=== PATIENT | male | born 1980 | race Caucasian/White ===

== ENCOUNTER 2025-06-23 15:14 | Emergency (ER) | payer BC, SELFPAY ==
[2025-06-23 15:32] VITALS: BP 125/76
[2025-06-23 17:08] VITALS: BP 134/66
--- NOTE | 2025-06-23 17:12 | ED.GENMED ---
History of Present Illness
General
Chief Complaint: DVT/Possible Blood Clot
Time Seen by Provider: 06/23/25 17:08
Nursing documentation reviewed up to this point in time: agreed with
History of Present Illness
History of Present Illness:
44-year-old male presents to the ER for evaluation of pain in his right lateral thigh which has been present over the last 2 weeks. No injury or trauma. No fevers or chills. Patient has been eating and drinking normally. He has not tried any
pain relievers for his symptoms. He is on chronic prednisone for Crohn's disease. He denies any rash. No extremity edema. No prior personal history of venous thromboembolism. He denies pain in his hip. He has been able to ambulate without
assistance. He denies pain in his knee or lower leg.
Past History
Past History
ED Past Medical History: Other (Crohn's, colitis)
ED Past Surgical History: None
Social History
Tobacco: Non-smoker
Alcohol: None
Drug: None
Personal:
Living: with family
Employment: Employed
Review of Systems
Review of Systems
Allergies reviewed?: Yes
Phy Exam
Physical Exam
Physical Exam:
Vital signs reviewed, patient is awake, alert, appears no acute distress, GCS is 15, mucous membranes moist, sclera anicteric, pelvis is stable to rock, no pain on palpation over bilateral hips, bilateral knees, lower legs, bilateral ankles or feet,
2+ DP pulses present symmetric bilateral feet, brisk cap refill present to the toes of the right foot, no calf pain on palpation bilaterally, no asymmetry on diameter of calves bilaterally, pain is localized over the distal insertion of the tensor
fascia starla on the superior lateral aspect of the right knee, there is no joint effusion, no excessive warmth, no crepitus, no overlying skin change
Course
Orders/Labs/Results
Orders:
Orders
06/23/25 15:35
Venous Doppler Lwr Ext Rt [US Periph Venous LOWER Ext RT] Urgent
Comment:
Reason For Exam: pain
06/23/25 17:12
Acetaminophen [Tylenol] 1,000 mg PO NOW STA
Femur, Right 2 View [CR Femur - Right Min 2 Vw] Urgent
Comment:
Reason For Exam: atraumatic pain
Knee, Right 4 or More Views [CR Knee- Right 4 Or More View*] Urgent
Comment:
Reason For Exam: atraumatic pain
Vital Signs
Initial and Last Documented VS:
Initial Vital Signs
Temp Pulse Resp BP Pulse Ox
98.4 F 87 18 125/76 99
06/23/25 15:32 06/23/25 15:32 06/23/25 15:32 06/23/25 15:32 06/23/25 15:32
Last Documented Vital Signs
Temp Pulse Resp BP Pulse Ox
98.4 F 87 18 134/66 97
06/23/25 15:32 06/23/25 15:32 06/23/25 15:32 06/23/25 17:08 06/23/25 18:00
MDM/Problems Addressed
Differential Diagnosis Includes:
Differential diagnosis to consider but not limited to DVT, arthritis, malignancy, sprain, strain, fracture along with other etiologies considered
Chronic conditions affecting care:
chrons on steroids
*Radiology
Radiology exam reviewed: preliminary read by ED provider (I independently viewed and interpreted x-ray of the right knee showing no acute process, no fracture, no malalignment. I independently viewed and interpreted x-ray of the right femur showing
normal alignment, no fracture, no acute process.) and radiology read reviewed (No DVT seen on ultrasound)
*Pulse Oximetry
SaO2: 99
Oxygen Mode of Delivery: Room air
Patient hypoxic: no
*Critical Care Note
Total Time (30-74mins, 75-104mins- exclusive of procedures): Not Applicable
Update Note
Update Note:
Will trial Tylenol for discomfort while awaiting x-ray of femur and knee. I discussed with patient and present at bedside very reassuring ultrasound without evidence of DVT
1830: I reviewed negative x-rays of femur and knee with patient. I discussed with him likely etiology symptoms related to tendinitis, no evidence for acute worrisome process. I advised him to use topical pain relieving creams in addition to
Tylenol I provided him with orthopedic referral information. He feels comfortable with this plan and has no additional questions at the current time.
ED Attending Note
-
Portions of this chart may have been created with voice recognition software.� Occasional wrong word or��sound alike� substitutions may have occurred due to the inherent limitations of voice recognition software.
Discharge Plan
Departure
Patient Disposition: Home (Routine Discharge)
Date of Disposition: 06/23/25
Time of Disposition: 18:32
Patient with high blood pressure during this ER visit?: No
Discharge Problem:
Acute leg pain, Tendonitis
Instructions: Tendinopathy (DC)
Prescriptions:
No Action
mesalamine 1.2 GM tablet,delayed release (DR/EC)
4 tab PO HS
ondansetron 4 MG tablet,disintegrating
4 mg PO TIDPRN PRN (Reason: nausea/vomiting) Qty: 10 0RF
loperamide 2 MG capsule
2 mg PO Q6HPRN PRN (Reason: loose stool) Qty: 10 0RF
famotidine 20 MG tablet
20 mg PO BID Qty: 28 0RF
Rx Instructions:
Take 20 mg twice a day for 14 days
ascorbic acid (vitamin C) [Vitamin C] 500 MG tablet
1,000 mg PO BID Qty: 56 0RF
Rx Instructions:
Take 1,000 mg twice a day for 14 days
aspirin 81 MG tablet,chewable
81 mg PO DAILY Qty: 14 0RF
Rx Instructions:
Take 81 mg daily for 14 days
zinc sulfate 220 MG capsule
220 mg PO DAILY Qty: 14 0RF
Rx Instructions:
Take 220 mg daily for 14 days
cholecalciferol (vitamin D3) 1,000 UNITS tablet
2,000 units PO DAILY Qty: 28 0RF
Rx Instructions:
Take 2,000 units daily for 14 days
melatonin 5 MG tablet
5 mg PO HS Qty: 14 0RF
Rx Instructions:
Take 5 mg daily at bedtime for 14 days
prednisone 20 MG tablet
40 mg PO DAILY Qty: 10 0RF
amoxicillin-pot clavulanate 1 TABLET tablet
1 tab PO Q12 Qty: 20 0RF
Referrals:
Joana Sepulveda MD [Family Provider, Physical Medicine and Rehab]
Theron Garcia MD [Active, Orthopedics] - Follow up in 5-7 days
Discharge Problem: Tendonitis
Activity Restrictions/Additional Instructions:
Use Tylenol as available [id number] as needed for pain. You may also try [id number] pain relieving creams such as Voltaren or Salonpas-apply as per package instructions to area of discomfort. Please follow-up with your primary care
physician this week or orthopedics if you are able to be seen. Return to the ER for any concerns
Interventions
Interventions:
*Risk Screen - Suicide Last Done: 06/23/25 15:32
*General Assessment Last Done: 06/23/25 15:32
*Neglect/Abuse Screening Last Done: 06/23/25 15:32
*ED- Fall Risk Assessment Last Done: 06/23/25 17:09
*ED COVID-19 Vaccine History Last Done: 06/23/25 17:09
*ED Influenza Vaccine History Last Done: 06/23/25 17:09
ED- Cardiac Assessment Last Done: 06/23/25 17:11
ED- Pulmonary Assessment Last Done: 06/23/25 17:11
ED-Peripheral Vascular Assessment Last Done: 06/23/25 17:11
ED-Skin Assessment Last Done: 06/23/25 17:11
Discharge Date and Time
Print Language: CROATIAN
[2025-06-23] MEDS: TYLENOL 1000 MG PO (17:27)
== END 2025-06-23 19:05 | disposition home or self-care (01) ==
LOC: EMR 15:14
PROVIDERS: EMERGENCY PHYSICIAN Emergency Medicine; FAMILY PHYSICIAN Internal Medicine
DX: M79.651 Pain in right thigh (principal); M77.9 Enthesopathy, unspecified; K50.90 Crohn's disease, unspecified, without complications; Z79.52 Long term (current) use of systemic steroids
CPT/HCPCS: 99284; 73552; 73564; 93971